=== PATIENT | female | born 1995 ===

== ENCOUNTER 2025-03-13 09:01 | Outpatient (CLI) | payer OTHER | END 2025-03-13 09:02 | disposition home or self-care (01) | LOC: EDBD 09:01 → PRENATAL 09:01 | PROVIDERS: ATTEND Obstetrics & Gynecology Maternal & Fetal Medicine | DX: O26.849 Uterine size-date discrepancy, unspecified trimester (principal); O28.3 Abnormal ultrasonic finding on antenatal screening of mother; O28.5 Abnormal chromosomal and genetic finding on antenatal screening of mother; Z3A.16 16 weeks gestation of pregnancy ==

== ENCOUNTER 2025-03-13 11:11 | Outpatient (CLI) | payer OTHER | END 2025-03-13 23:30 | disposition home or self-care (01) | LOC: LAB 11:11 | PROVIDERS: ATTEND Obstetrics & Gynecology Maternal & Fetal Medicine | DX: Z00.00 Encounter for general adult medical examination without abnormal findings (principal) ==

== ENCOUNTER 2025-03-27 11:26 | Outpatient (CLI) | payer OTHER | END 2025-03-27 11:29 | disposition home or self-care (01) | LOC: PRENATAL 11:26 | PROVIDERS: ATTEND Obstetrics & Gynecology Maternal & Fetal Medicine | DX: O44.00 Complete placenta previa NOS or without hemorrhage, unspecified trimester (principal); O28.5 Abnormal chromosomal and genetic finding on antenatal screening of mother; O28.3 Abnormal ultrasonic finding on antenatal screening of mother; Z3A.17 17 weeks gestation of pregnancy ==